=== PATIENT | female | born 1955 | race Caucasian/White ===

== ENCOUNTER 2017-11-30 22:10 | Inpatient (IN) | payer MEDICARE, MEDICAID ==
[2017-11-30] MEDS ORDERED: IPRATRPIUM/ALBUTEROL 0.5/2.5MG 3 ML NEBU. NEB (23:00)
[2017-11-30] MEDS ORDERED: ALBUTEROL SULFATE 2.5 MG/3 ML NEBU. NEB (23:00)
[2017-11-30] MEDS ORDERED: POLYVINYL ALCOHOL 1.4% OPHTH SOLUTION 15ML BOTTLE. OU (23:15)
[2017-11-30 23:30] LABS: ADD MAN DIFF? NO
[2017-11-30] MEDS: POTASSIUM CHLORIDE 40 MEQ in IV NORMAL SALINE 1000ML BAG 1,000 ML IV (23:38)
[2017-11-30 23:40] LABS: BASO # 0.1 x10^3/uL (0.0-0.2); BASO % 1 % (0-3); EOS # 0.3 x10^3/uL (0.0-0.7); EOS % 2 % (0-3); HEMATOCRIT 31.6 % (36.0-47.0); HEMOGLOBIN 9.7 g/dL (12.0-15.5); LYMPH # 4.2 x10^3/uL (1.0-4.8); LYMPH % 28 % (24-48); MEAN CORPUSCULAR HEMOGLOBIN 24 pg (25-35); MEAN CORPUSCULAR HGB CONC 31 g/dL (31-37); MEAN CORPUSCULAR VOLUME 77 fL (79-100); MONO # 1.3 x10^3/uL (0.0-1.1); MONO % 9 % (0-9); NEUT # 9.4 x10^3uL (1.8-7.7); NEUT % 62 % (31-73); PLATELET COUNT 511 x10^3/uL (140-400); RED CELL DISTRIBUTION WIDTH 17.9 % (11.5-14.5); WHITE BLOOD COUNT 15.3 x10^3/uL (4.0-11.0)
[2017-11-30] MEDS: MORPHINE SULFATE 4 MG/ML DISP.SYRIN. IV (23:40)
[2017-11-30 23:59] LABS: ALBUMIN 2.1 g/dL (3.4-5.0); ALBUMIN/GLOBULIN RATIO 0.4 (1.0-1.7); ALK PHOS 105 U/L (46-116); ALT (SGPT) 9 U/L (14-59); ANION GAP 15 (6-14); AST (SGOT) 16 U/L (15-37); BLOOD UREA NITROGEN 6 mg/dL (7-20); BUN/CREATININE RATIO 10 (6-20); CALCIUM 8.4 mg/dL (8.5-10.1); CARBON DIOXIDE 24 mmol/L (21-32); CHLORIDE 102 mmol/L (98-107); CREATININE 0.6 mg/dL (0.6-1.0); GFR 100.6; GLUCOSE 96 mg/dL (70-99); POTASSIUM 3.1 mmol/L (3.5-5.1); SODIUM 141 mmol/L (136-145); TOTAL BILIRUBIN 0.2 mg/dL (0.2-1.0); TOTAL PROTEIN 7.1 g/dL (6.4-8.2)
[2017-12-01] MEDS: MORPHINE SULFATE 4 MG/ML DISP.SYRIN. IV ×5 (02:38→19:59)
[2017-12-01] MEDS: PIPERACILLIN/TAZOBACTAM 3.375 GM in IV NORMAL SALINE 50ML 50 ML IV ×3 (06:07→21:33)
[2017-12-01] MEDS: NYSTATIN TOPICAL POWDER 15GM BOTTLE. TP ×2 (08:44→21:00)
[2017-12-01] MEDS: AMMONIUM LACTATE 12% TOPICAL LOTION 226GM BOTTLE. TP ×2 (08:44→21:00)
[2017-12-01 08:53] LABS: ADD MAN DIFF? NO
[2017-12-01 09:07] LABS: BASO # 0.1 x10^3/uL (0.0-0.2); BASO % 1 % (0-3); EOS # 0.2 x10^3/uL (0.0-0.7); EOS % 1 % (0-3); HEMATOCRIT 30.5 % (36.0-47.0); HEMOGLOBIN 9.3 g/dL (12.0-15.5); LYMPH # 2.9 x10^3/uL (1.0-4.8); LYMPH % 25 % (24-48); MEAN CORPUSCULAR HEMOGLOBIN 24 pg (25-35); MEAN CORPUSCULAR HGB CONC 31 g/dL (31-37); MEAN CORPUSCULAR VOLUME 78 fL (79-100); MONO # 1.3 x10^3/uL (0.0-1.1); MONO % 11 % (0-9); NEUT # 7.1 x10^3uL (1.8-7.7); NEUT % 62 % (31-73); PLATELET COUNT 450 x10^3/uL (140-400); RED BLOOD COUNT 3.91 x10^6/uL (3.50-5.40); RED CELL DISTRIBUTION WIDTH 18.2 % (11.5-14.5); WHITE BLOOD COUNT 11.6 x10^3/uL (4.0-11.0)
[2017-12-01 09:21] LABS: ALBUMIN 2.1 g/dL (3.4-5.0); ALBUMIN/GLOBULIN RATIO 0.5 (1.0-1.7); ALK PHOS 104 U/L (46-116); ALT (SGPT) 10 U/L (14-59); ANION GAP 13 (6-14); AST (SGOT) 9 U/L (15-37); BLOOD UREA NITROGEN 6 mg/dL (7-20); BUN/CREATININE RATIO 10 (6-20); CALCIUM 8.4 mg/dL (8.5-10.1); CARBON DIOXIDE 24 mmol/L (21-32); CHLORIDE 105 mmol/L (98-107); CREATININE 0.6 mg/dL (0.6-1.0); GFR 100.6; GLUCOSE 108 mg/dL (70-99); POTASSIUM 3.8 mmol/L (3.5-5.1); SODIUM 142 mmol/L (136-145); TOTAL BILIRUBIN 0.2 mg/dL (0.2-1.0); TOTAL PROTEIN 6.3 g/dL (6.4-8.2)
[2017-12-01] MEDS: IV NORMAL SALINE 1000ML BAG 1,000 ML IV (09:42)
[2017-12-01 12:12] LABS: LACTIC ACID 0.8 mmol/L (0.4-2.0)
[2017-12-01] MEDS: LACTOBACILLUS RHAMNOSUS GG 1 CAPSULE. PO ×2 (13:00→21:00)
[2017-12-01] MEDS: POTASSIUM CL 40MEQ IN 0.9%NACL 1,000 ML IV (13:13)
[2017-12-02] MEDS: MORPHINE SULFATE 4 MG/ML DISP.SYRIN. IV ×8 (01:44→23:28)
[2017-12-02] MEDS: POTASSIUM CL 40MEQ IN 0.9%NACL 1,000 ML IV ×2 (03:08→17:57)
[2017-12-02] MEDS: ONDANSETRON PF 4 MG/2 ML VIAL. IV ×2 (04:04→09:56)
[2017-12-02 05:58] LABS: ALBUMIN 2.1 g/dL (3.4-5.0); ALBUMIN/GLOBULIN RATIO 0.5 (1.0-1.7); ALK PHOS 100 U/L (46-116); ALT (SGPT) 13 U/L (14-59); ANION GAP 13 (6-14); AST (SGOT) 16 U/L (15-37); BLOOD UREA NITROGEN 6 mg/dL (7-20); BUN/CREATININE RATIO 10 (6-20); CALCIUM 8.4 mg/dL (8.5-10.1); CARBON DIOXIDE 22 mmol/L (21-32); CHLORIDE 107 mmol/L (98-107); CREATININE 0.6 mg/dL (0.6-1.0); GFR 100.6; GLUCOSE 107 mg/dL (70-99); POTASSIUM 4.1 mmol/L (3.5-5.1); SODIUM 142 mmol/L (136-145); TOTAL BILIRUBIN 0.3 mg/dL (0.2-1.0); TOTAL PROTEIN 6.2 g/dL (6.4-8.2)
[2017-12-02] MEDS: PIPERACILLIN/TAZOBACTAM 3.375 GM in IV NORMAL SALINE 50ML 50 ML IV ×3 (06:11→21:07)
[2017-12-02] MEDS: LACTOBACILLUS RHAMNOSUS GG 1 CAPSULE. PO ×2 (09:00→19:36)
[2017-12-02] MEDS: AMMONIUM LACTATE 12% TOPICAL LOTION 226GM BOTTLE. TP ×2 (13:26→19:36)
[2017-12-02] MEDS: NYSTATIN TOPICAL POWDER 15GM BOTTLE. TP ×2 (16:34→19:37)
[2017-12-02 22:08] LABS: MRSA BY PCR Negative (Negative)
[2017-12-03] MEDS: MORPHINE SULFATE 4 MG/ML DISP.SYRIN. IV ×4 (03:26→23:55)
[2017-12-03] MEDS: POTASSIUM CL 40MEQ IN 0.9%NACL 1,000 ML IV ×2 (03:26→15:20)
[2017-12-03] MEDS: PIPERACILLIN/TAZOBACTAM 3.375 GM in IV NORMAL SALINE 50ML 50 ML IV ×4 (05:39→23:56)
[2017-12-03] MEDS: AMMONIUM LACTATE 12% TOPICAL LOTION 226GM BOTTLE. TP ×2 (09:00→21:00)
[2017-12-03] MEDS: LACTOBACILLUS RHAMNOSUS GG 1 CAPSULE. PO ×2 (09:00→23:10)
[2017-12-03] MEDS: NYSTATIN TOPICAL POWDER 15GM BOTTLE. TP ×2 (09:00→23:12)
[2017-12-03 09:20] LABS: ADD MAN DIFF? NO
[2017-12-03 09:22] LABS: BASO # 0.1 x10^3/uL (0.0-0.2); BASO % 1 % (0-3); EOS # 0.2 x10^3/uL (0.0-0.7); EOS % 1 % (0-3); HEMATOCRIT 30.5 % (36.0-47.0); HEMOGLOBIN 9.3 g/dL (12.0-15.5); LYMPH # 1.9 x10^3/uL (1.0-4.8); LYMPH % 16 % (24-48); MEAN CORPUSCULAR HEMOGLOBIN 24 pg (25-35); MEAN CORPUSCULAR HGB CONC 31 g/dL (31-37); MEAN CORPUSCULAR VOLUME 78 fL (79-100); MONO % 8 % (0-9); NEUT # 9.1 x10^3uL (1.8-7.7); NEUT % 74 % (31-73); PLATELET COUNT 438 x10^3/uL (140-400); RED BLOOD COUNT 3.93 x10^6/uL (3.50-5.40); RED CELL DISTRIBUTION WIDTH 18.7 % (11.5-14.5); WHITE BLOOD COUNT 12.3 x10^3/uL (4.0-11.0)
[2017-12-03 10:02] LABS: ALBUMIN 2.1 g/dL (3.4-5.0); ALBUMIN/GLOBULIN RATIO 0.5 (1.0-1.7); ALK PHOS 99 U/L (46-116); ALT (SGPT) 11 U/L (14-59); ANION GAP 10 (6-14); AST (SGOT) 11 U/L (15-37); BLOOD UREA NITROGEN 5 mg/dL (7-20); BUN/CREATININE RATIO 8 (6-20); CALCIUM 8.4 mg/dL (8.5-10.1); CARBON DIOXIDE 26 mmol/L (21-32); CHLORIDE 108 mmol/L (98-107); CREATININE 0.6 mg/dL (0.6-1.0); GFR 100.6; GLUCOSE 102 mg/dL (70-99); SODIUM 144 mmol/L (136-145); TOTAL BILIRUBIN 0.3 mg/dL (0.2-1.0); TOTAL PROTEIN 6.1 g/dL (6.4-8.2)
[2017-12-03] MEDS: IOHEXOL 350 MG/ML 100 ML VIAL. PO (10:15)
[2017-12-03] MEDS ORDERED: CONTRAST GIVEN MC ×2 (10:15→10:45)
[2017-12-03] MEDS: IOHEXOL 300 MG/ML 100ML VIAL. PO (11:15)
[2017-12-03] MEDS: VANCOMYCIN 2 GM in IV DEXTROSE 5 %-0.45 % NACL 500 ML IV (17:00)
[2017-12-03] MEDS: IV NORMAL SALINE 1000ML BAG 1,000 ML IV (17:00)
[2017-12-03 18:08] LABS: LACTIC ACID 0.8 mmol/L (0.4-2.0)
[2017-12-03] MEDS: VANCOMYCIN PER PHARMACY MC (18:42)
[2017-12-03 20:18] LABS: BILIRUBIN,URINE NEGATIVE (NEG); CLARITY,URINE CLEAR; COLOR,URINE YELLOW; GLUCOSE,URINE NEGATIVE (NEG); NITRITE,URINE NEGATIVE (NEG); PH,URINE 6.5; PROTEIN,URINE NEGATIVE (NEG-TRACE); UROBILINOGEN,URINE 0.2 mg/dL (0.2 mg/dL)
[2017-12-03 20:25] LABS: RBC,URINE OCC /HPF (0-2)
[2017-12-03 20:26] LABS: AMORPHOUS SEDIMENT,UR PRESENT /HPF; BACTERIA,URINE 0 /HPF (0-FEW); SQUAMOUS EPITHELIAL CELL,UR MOD /LPF
[2017-12-04] MEDS: POTASSIUM CL 40MEQ IN 0.9%NACL 1,000 ML IV ×2 (04:40→11:41)
[2017-12-04] MEDS: PIPERACILLIN/TAZOBACTAM 3.375 GM in IV NORMAL SALINE 50ML 50 ML IV ×3 (05:58→17:56)
[2017-12-04] MEDS: MORPHINE SULFATE 4 MG/ML DISP.SYRIN. IV ×4 (06:33→19:38)
[2017-12-04 06:43] LABS: ALBUMIN/GLOBULIN RATIO 0.5 (1.0-1.7); ALK PHOS 104 U/L (46-116); ALT (SGPT) 13 U/L (14-59); ANION GAP 11 (6-14); AST (SGOT) 21 U/L (15-37); BLOOD UREA NITROGEN 3 mg/dL (7-20); BUN/CREATININE RATIO 4 (6-20); CALCIUM 8.4 mg/dL (8.5-10.1); CARBON DIOXIDE 25 mmol/L (21-32); CHLORIDE 105 mmol/L (98-107); CREATININE 0.7 mg/dL (0.6-1.0); GFR 84.2; GLUCOSE 95 mg/dL (70-99); POTASSIUM 3.5 mmol/L (3.5-5.1); SODIUM 141 mmol/L (136-145); TOTAL BILIRUBIN 0.4 mg/dL (0.2-1.0); TOTAL PROTEIN 6.4 g/dL (6.4-8.2)
[2017-12-04 07:30] LABS: HEMATOCRIT 30.8 % (36.0-47.0); HEMOGLOBIN 9.5 g/dL (12.0-15.5); MEAN CORPUSCULAR HEMOGLOBIN 24 pg (25-35); MEAN CORPUSCULAR HGB CONC 31 g/dL (31-37); MEAN CORPUSCULAR VOLUME 76 fL (79-100); PLATELET COUNT 429 x10^3/uL (140-400); RED BLOOD COUNT 4.04 x10^6/uL (3.50-5.40); RED CELL DISTRIBUTION WIDTH 18.2 % (11.5-14.5); WHITE BLOOD COUNT 15.2 x10^3/uL (4.0-11.0)
[2017-12-04] MEDS: LACTOBACILLUS RHAMNOSUS GG 1 CAPSULE. PO ×2 (08:11→19:38)
[2017-12-04] MEDS: ONDANSETRON PF 4 MG/2 ML VIAL. IV ×2 (08:11→16:32)
[2017-12-04] MEDS: VANCOMYCIN 2 GM in IV DEXTROSE 5 %-0.45 % NACL 500 ML IV ×2 (08:12→19:39)
[2017-12-04] MEDS: AMMONIUM LACTATE 12% TOPICAL LOTION 226GM BOTTLE. TP ×2 (08:23→19:40)
[2017-12-04] MEDS: NYSTATIN TOPICAL POWDER 15GM BOTTLE. TP ×2 (08:23→19:40)
[2017-12-04] MEDS: VANCOMYCIN PER PHARMACY MC (13:01)
[2017-12-05] MEDS: PIPERACILLIN/TAZOBACTAM 3.375 GM in IV NORMAL SALINE 50ML 50 ML IV ×5 (00:59→19:08)
[2017-12-05] MEDS: MORPHINE SULFATE 4 MG/ML DISP.SYRIN. IV ×5 (01:57→17:53)
[2017-12-05] MEDS: POTASSIUM CL 40MEQ IN 0.9%NACL 1,000 ML IV (06:25)
[2017-12-05 07:52] LABS: ADD MAN DIFF? NO
[2017-12-05 08:09] LABS: ANION GAP 11 (6-14); BLOOD UREA NITROGEN 4 mg/dL (7-20); CALCIUM 8.3 mg/dL (8.5-10.1); CARBON DIOXIDE 25 mmol/L (21-32); CHLORIDE 104 mmol/L (98-107); CREATININE 1.3 mg/dL (0.6-1.0); GFR 41.2; GLUCOSE 97 mg/dL (70-99); POTASSIUM 3.3 mmol/L (3.5-5.1); SODIUM 140 mmol/L (136-145)
[2017-12-05 08:22] LABS: BASO # 0.1 x10^3/uL (0.0-0.2); BASO % 1 % (0-3); EOS # 0.5 x10^3/uL (0.0-0.7); EOS % 3 % (0-3); HEMATOCRIT 29.9 % (36.0-47.0); HEMOGLOBIN 9.2 g/dL (12.0-15.5); LYMPH # 2.2 x10^3/uL (1.0-4.8); LYMPH % 13 % (24-48); MEAN CORPUSCULAR HEMOGLOBIN 24 pg (25-35); MEAN CORPUSCULAR HGB CONC 31 g/dL (31-37); MEAN CORPUSCULAR VOLUME 77 fL (79-100); MONO # 1.5 x10^3/uL (0.0-1.1); MONO % 9 % (0-9); NEUT % 73 % (31-73); PLATELET COUNT 349 x10^3/uL (140-400); RED BLOOD COUNT 3.89 x10^6/uL (3.50-5.40); RED CELL DISTRIBUTION WIDTH 18.1 % (11.5-14.5); VANC TR 30.5 mcg/mL (10.0-20.0); WHITE BLOOD COUNT 16.4 x10^3/uL (4.0-11.0)
[2017-12-05] MEDS: LACTOBACILLUS RHAMNOSUS GG 1 CAPSULE. PO ×2 (09:49→21:46)
[2017-12-05] MEDS: NYSTATIN TOPICAL POWDER 15GM BOTTLE. TP ×2 (09:51→21:46)
[2017-12-05] MEDS: ONDANSETRON PF 4 MG/2 ML VIAL. IV (09:51)
[2017-12-05] MEDS: AMMONIUM LACTATE 12% TOPICAL LOTION 226GM BOTTLE. TP ×2 (09:51→21:45)
[2017-12-05] MEDS: POTASSIUM CHLORIDE 20 MEQ TABLET.ER. PO ×3 (09:51→17:53)
[2017-12-05] MEDS: IOHEXOL 240 MG/ML 50ML VIAL. PO (10:15)
[2017-12-05] MEDS ORDERED: CONTRAST GIVEN MC (10:15)
[2017-12-05] MEDS: LINEZOLID 600 MG TABLET PO (21:46)
[2017-12-06] MEDS: PIPERACILLIN/TAZOBACTAM 3.375 GM in IV NORMAL SALINE 50ML 50 ML IV ×4 (00:12→18:38)
[2017-12-06] MEDS: POTASSIUM CL 40MEQ IN 0.9%NACL 1,000 ML IV ×2 (00:13→10:00)
[2017-12-06] MEDS: MORPHINE SULFATE 4 MG/ML DISP.SYRIN. IV ×2 (04:23→20:57)
[2017-12-06] MEDS: POTASSIUM CHLORIDE 20 MEQ TABLET.ER. PO ×3 (08:00→16:25)
[2017-12-06] MEDS: LINEZOLID 600 MG TABLET PO ×2 (09:00→20:54)
[2017-12-06] MEDS: LACTOBACILLUS RHAMNOSUS GG 1 CAPSULE. PO ×2 (09:00→20:54)
[2017-12-06] MEDS: ONDANSETRON PF 4 MG/2 ML VIAL. IV (09:09)
[2017-12-06 10:09] LABS: HEMATOCRIT 29.5 % (36.0-47.0); HEMOGLOBIN 9.2 g/dL (12.0-15.5); MEAN CORPUSCULAR HEMOGLOBIN 24 pg (25-35); MEAN CORPUSCULAR HGB CONC 31 g/dL (31-37); MEAN CORPUSCULAR VOLUME 77 fL (79-100); PLATELET COUNT 412 x10^3/uL (140-400); RED BLOOD COUNT 3.85 x10^6/uL (3.50-5.40); RED CELL DISTRIBUTION WIDTH 18.5 % (11.5-14.5); WHITE BLOOD COUNT 14.8 x10^3/uL (4.0-11.0)
[2017-12-06] MEDS ORDERED: ONDANSETRON PF 4 MG/2 ML VIAL. IV (10:30)
[2017-12-06] MEDS: IV DEXTROSE 5 %-0.45 % NACL 1,000 ML IV (10:45)
[2017-12-06] MEDS: IV RINGERS,LACTATED 1000ML 1,000 ML IV (11:00)
[2017-12-06] MEDS ORDERED: PROCHLORPERAZINE 10 MG/2 ML VIAL. IV (11:00)
[2017-12-06] MEDS ORDERED: MORPHINE SULFATE 4 MG/ML DISP.SYRIN. IV (11:00)
[2017-12-06] MEDS ORDERED: fentaNYL PF VIAL 100 MCG/2 ML VIAL IV ×2 (11:00)
[2017-12-06] MEDS ORDERED: LIDOCAINE 1% PF 2 ML VIAL. ID (11:00)
[2017-12-06 11:16] LABS: ALBUMIN 1.8 g/dL (3.4-5.0); ALBUMIN/GLOBULIN RATIO 0.4 (1.0-1.7); ALK PHOS 97 U/L (46-116); ALT (SGPT) 6 U/L (14-59); ANION GAP 8 (6-14); AST (SGOT) 15 U/L (15-37); BLOOD UREA NITROGEN 4 mg/dL (7-20); BUN/CREATININE RATIO 3 (6-20); CALCIUM 8.1 mg/dL (8.5-10.1); CARBON DIOXIDE 23 mmol/L (21-32); CHLORIDE 111 mmol/L (98-107); CREATININE 1.6 mg/dL (0.6-1.0); GFR 32.5; GLUCOSE 96 mg/dL (70-99); SODIUM 142 mmol/L (136-145); TOTAL BILIRUBIN 0.4 mg/dL (0.2-1.0)
[2017-12-06 11:21] LABS: POTASSIUM 6.3 mmol/L (3.5-5.1)
[2017-12-06] MEDS: NYSTATIN TOPICAL POWDER 15GM BOTTLE. TP ×2 (13:21→21:11)
[2017-12-06] MEDS: AMMONIUM LACTATE 12% TOPICAL LOTION 226GM BOTTLE. TP ×2 (13:21→21:11)
[2017-12-06] MEDS: LACTULOSE 20 GM/30 ML SOLUTION. PO (13:22)
[2017-12-06] MEDS: SODIUM POLYSTYRENE SULFONATE 15 GM/60 ML ORAL.SUSP. PO (13:23)
[2017-12-06] MEDS: SODIUM BICARB ADULT 8.4% 50 MEQ/50 ML DISP.SYRIN. IV (13:25)
[2017-12-06] MEDS: CALCIUM GLUCONATE 1,000 MG/10 ML VIAL. IVP (13:25)
[2017-12-06] MEDS: DEXTROSE 50% 25 GM / 50ML DISP.SYRIN. IV ×2 (13:26→16:41)
[2017-12-06] MEDS: INSULIN REGULAR 100 UNIT/ML 10ML VIAL. IV (13:27)
[2017-12-06 13:59] LABS: ANION GAP 11 (6-14); CARBON DIOXIDE 24 mmol/L (21-32); CHLORIDE 107 mmol/L (98-107); POTASSIUM 4.2 mmol/L (3.5-5.1); SODIUM 142 mmol/L (136-145)
[2017-12-06 15:16] LABS: POC GLUCOSE 76 mg/dL (70-99)
[2017-12-06 16:24] LABS: POC GLUCOSE 53 mg/dL (70-99)
[2017-12-06 17:33] LABS: POC GLUCOSE 101 mg/dL (70-99)
[2017-12-06 19:19] LABS: ANION GAP 14 (6-14); BLOOD UREA NITROGEN 4 mg/dL (7-20); CALCIUM 8.7 mg/dL (8.5-10.1); CARBON DIOXIDE 25 mmol/L (21-32); CHLORIDE 110 mmol/L (98-107); CREATININE 1.9 mg/dL (0.6-1.0); GFR 26.6; GLUCOSE 159 mg/dL (70-99); POTASSIUM 3.2 mmol/L (3.5-5.1); SODIUM 149 mmol/L (136-145)
[2017-12-06 19:49] LABS: POC GLUCOSE 107 mg/dL (70-99)
[2017-12-06 20:30] LABS: POC GLUCOSE 149 mg/dL (70-99)
[2017-12-07] MEDS: PIPERACILLIN/TAZOBACTAM 3.375 GM in IV NORMAL SALINE 50ML 50 ML IV ×4 (00:53→17:42)
[2017-12-07] MEDS: IV DEXTROSE 5 %-0.45 % NACL 1,000 ML IV (00:56)
[2017-12-07] MEDS ORDERED: silver sulfADIAZINE 1% CREAM 25GM TUBE. TP (06:03)
[2017-12-07] MEDS ORDERED: LIDOCAINE 1% PF 30 ML VIAL. (06:04)
[2017-12-07 06:51] LABS: ANION GAP 11 (6-14); BLOOD UREA NITROGEN 3 mg/dL (7-20); CALCIUM 8.7 mg/dL (8.5-10.1); CARBON DIOXIDE 26 mmol/L (21-32); CHLORIDE 111 mmol/L (98-107); CREATININE 1.9 mg/dL (0.6-1.0); GFR 26.6; GLUCOSE 143 mg/dL (70-99); POTASSIUM 3.3 mmol/L (3.5-5.1); SODIUM 148 mmol/L (136-145)
[2017-12-07] MEDS ORDERED: ONDANSETRON PF 4 MG/2 ML VIAL. IV (07:00)
[2017-12-07] MEDS ORDERED: MORPHINE SULFATE 4 MG/ML DISP.SYRIN. IV (07:00)
[2017-12-07] MEDS ORDERED: LIDOCAINE 1% PF 2 ML VIAL. ID (07:00)
[2017-12-07] MEDS ORDERED: PROCHLORPERAZINE 10 MG/2 ML VIAL. IV (07:00)
[2017-12-07] MEDS ORDERED: LIDOCAINE 1% PF 5 ML VIAL. (07:20)
[2017-12-07] MEDS ORDERED: PROPOFOL 20 ML IV (07:20)
[2017-12-07] MEDS ORDERED: ONDANSETRON PF 4 MG/2 ML VIAL. (07:20)
[2017-12-07] MEDS ORDERED: DEXAMETHASONE SOD PHOS 20 MG/5 ML VIAL. (07:20)
[2017-12-07] MEDS ORDERED: PHENYLEPHRINE in 0.9% NACL PF 1 MG/10 ML SYRINGE. IV (07:34)
[2017-12-07] MEDS ORDERED: SEVOFLURANE 31 TO 60 MINUTES. IH (08:03)
[2017-12-07] MEDS ORDERED: fentaNYL PF VIAL 100 MCG/2 ML VIAL ×2 (08:41→09:18)
[2017-12-07] MEDS: fentaNYL PF VIAL 100 MCG/2 ML VIAL IV ×4 (08:50→09:20)
[2017-12-07] MEDS: IV RINGERS,LACTATED 1000ML 1,000 ML IV (09:22)
[2017-12-07] MEDS: POTASSIUM CL 20MEQ IN D5W 1,000 ML IV (11:44)
[2017-12-07] MEDS: LINEZOLID 600 MG TABLET PO ×2 (12:00→21:21)
[2017-12-07] MEDS: NYSTATIN TOPICAL POWDER 15GM BOTTLE. TP ×2 (12:00→21:21)
[2017-12-07] MEDS: LACTOBACILLUS RHAMNOSUS GG 1 CAPSULE. PO ×2 (12:00→21:21)
[2017-12-07] MEDS: AMMONIUM LACTATE 12% TOPICAL LOTION 226GM BOTTLE. TP ×2 (12:01→21:21)
[2017-12-07] MEDS: MORPHINE SULFATE 4 MG/ML DISP.SYRIN. IV ×3 (12:09→21:22)
[2017-12-07] MEDS: AMINO AC 3%/ELECTROLYTE/GLYCER 1,000 ML IV (13:20)
[2017-12-07 18:03] LABS: ANION GAP 10 (6-14); BLOOD UREA NITROGEN 4 mg/dL (7-20); CALCIUM 8.1 mg/dL (8.5-10.1); CARBON DIOXIDE 26 mmol/L (21-32); CHLORIDE 108 mmol/L (98-107); CREATININE 1.8 mg/dL (0.6-1.0); GFR 28.3; GLUCOSE 165 mg/dL (70-99); POTASSIUM 3.8 mmol/L (3.5-5.1); SODIUM 144 mmol/L (136-145)
[2017-12-07 18:12] LABS: LACTIC ACID 1.2 mmol/L (0.4-2.0)
[2017-12-08] MEDS: MORPHINE SULFATE 4 MG/ML DISP.SYRIN. IV ×4 (00:24→22:54)
[2017-12-08] MEDS: PIPERACILLIN/TAZOBACTAM 3.375 GM in IV NORMAL SALINE 50ML 50 ML IV ×4 (00:25→18:08)
[2017-12-08] MEDS: AMINO AC 3%/ELECTROLYTE/GLYCER 1,000 ML IV ×2 (01:33→12:50)
[2017-12-08] MEDS: POTASSIUM CL 20MEQ IN D5W 1,000 ML IV ×2 (04:04→22:53)
[2017-12-08 06:43] LABS: HEMATOCRIT 28.7 % (36.0-47.0); HEMOGLOBIN 8.9 g/dL (12.0-15.5); MEAN CORPUSCULAR HEMOGLOBIN 24 pg (25-35); MEAN CORPUSCULAR HGB CONC 31 g/dL (31-37); MEAN CORPUSCULAR VOLUME 77 fL (79-100); PLATELET COUNT 424 x10^3/uL (140-400); RED BLOOD COUNT 3.75 x10^6/uL (3.50-5.40); RED CELL DISTRIBUTION WIDTH 18.4 % (11.5-14.5); WHITE BLOOD COUNT 15.7 x10^3/uL (4.0-11.0)
[2017-12-08 06:57] LABS: ALBUMIN 1.9 g/dL (3.4-5.0); ALBUMIN/GLOBULIN RATIO 0.4 (1.0-1.7); ALK PHOS 96 U/L (46-116); ALT (SGPT) 11 U/L (14-59); ANION GAP 9 (6-14); AST (SGOT) 12 U/L (15-37); BLOOD UREA NITROGEN 7 mg/dL (7-20); BUN/CREATININE RATIO 4 (6-20); CALCIUM 8.5 mg/dL (8.5-10.1); CARBON DIOXIDE 27 mmol/L (21-32); CHLORIDE 102 mmol/L (98-107); CREATININE 1.7 mg/dL (0.6-1.0); GFR 30.3; GLUCOSE 132 mg/dL (70-99); POTASSIUM 3.4 mmol/L (3.5-5.1); SODIUM 138 mmol/L (136-145); TOTAL BILIRUBIN 0.3 mg/dL (0.2-1.0); TOTAL PROTEIN 6.9 g/dL (6.4-8.2)
[2017-12-08] MEDS: ONDANSETRON PF 4 MG/2 ML VIAL. IV (10:32)
[2017-12-08] MEDS: LINEZOLID 600 MG TABLET PO ×2 (10:33→22:54)
[2017-12-08] MEDS: LACTOBACILLUS RHAMNOSUS GG 1 CAPSULE. PO ×2 (10:33→22:54)
[2017-12-08] MEDS: NYSTATIN TOPICAL POWDER 15GM BOTTLE. TP ×2 (10:34→22:56)
[2017-12-08] MEDS: HYDROCORTISONE 1% TOPICAL OINTMENT 30GM TUBE. TP ×2 (10:34→22:56)
[2017-12-08] MEDS: AMMONIUM LACTATE 12% TOPICAL LOTION 226GM BOTTLE. TP ×2 (10:36→22:56)
[2017-12-08] MEDS: METHYL SALICYLATE/MENTHOL TOPICAL OINTMENT 29GM TUBE. TP (22:55)
[2017-12-09] MEDS: PIPERACILLIN/TAZOBACTAM 3.375 GM in IV NORMAL SALINE 50ML 50 ML IV ×5 (00:17→23:08)
[2017-12-09] MEDS: MORPHINE SULFATE 4 MG/ML DISP.SYRIN. IV ×5 (01:24→20:06)
[2017-12-09] MEDS: AMINO AC 3%/ELECTROLYTE/GLYCER 1,000 ML IV ×2 (01:25→17:02)
[2017-12-09 08:09] LABS: ADD MAN DIFF? NO
[2017-12-09 08:40] LABS: BASO # 0.2 x10^3/uL (0.0-0.2); BASO % 1 % (0-3); EOS # 0.2 x10^3/uL (0.0-0.7); EOS % 1 % (0-3); HEMATOCRIT 30.5 % (36.0-47.0); HEMOGLOBIN 9.3 g/dL (12.0-15.5); LYMPH # 2.1 x10^3/uL (1.0-4.8); LYMPH % 16 % (24-48); MEAN CORPUSCULAR HEMOGLOBIN 24 pg (25-35); MEAN CORPUSCULAR HGB CONC 31 g/dL (31-37); MEAN CORPUSCULAR VOLUME 78 fL (79-100); MONO # 1.1 x10^3/uL (0.0-1.1); MONO % 8 % (0-9); NEUT # 10.1 x10^3uL (1.8-7.7); NEUT % 74 % (31-73); PLATELET COUNT 376 x10^3/uL (140-400); RED CELL DISTRIBUTION WIDTH 18.8 % (11.5-14.5); WHITE BLOOD COUNT 13.7 x10^3/uL (4.0-11.0)
[2017-12-09 08:43] LABS: ANION GAP 11 (6-14); BLOOD UREA NITROGEN 9 mg/dL (7-20); CALCIUM 8.5 mg/dL (8.5-10.1); CARBON DIOXIDE 25 mmol/L (21-32); CHLORIDE 106 mmol/L (98-107); CREATININE 1.8 mg/dL (0.6-1.0); GFR 28.3; GLUCOSE 110 mg/dL (70-99); POTASSIUM 3.9 mmol/L (3.5-5.1); SODIUM 142 mmol/L (136-145)
[2017-12-09] MEDS: LACTOBACILLUS RHAMNOSUS GG 1 CAPSULE. PO ×2 (09:09→20:06)
[2017-12-09] MEDS: LINEZOLID 600 MG TABLET PO ×2 (09:09→20:06)
[2017-12-09] MEDS: ONDANSETRON PF 4 MG/2 ML VIAL. IV (09:09)
[2017-12-09] MEDS: NYSTATIN TOPICAL POWDER 15GM BOTTLE. TP ×2 (09:11→20:05)
[2017-12-09] MEDS: ALTEPLASE 2 MG VIAL INT CAT (09:12)
[2017-12-09] MEDS: AMMONIUM LACTATE 12% TOPICAL LOTION 226GM BOTTLE. TP ×2 (09:12→20:05)
[2017-12-09] MEDS: POTASSIUM CL 20MEQ IN D5W 1,000 ML IV ×2 (19:27→20:06)
[2017-12-10] MEDS: MORPHINE SULFATE 4 MG/ML DISP.SYRIN. IV ×5 (02:25→20:40)
[2017-12-10] MEDS: AMINO AC 3%/ELECTROLYTE/GLYCER 1,000 ML IV ×2 (02:45→11:45)
[2017-12-10] MEDS: PIPERACILLIN/TAZOBACTAM 3.375 GM in IV NORMAL SALINE 50ML 50 ML IV ×4 (05:47→23:52)
[2017-12-10 06:38] LABS: ANION GAP 8 (6-14); BLOOD UREA NITROGEN 12 mg/dL (7-20); CALCIUM 8.8 mg/dL (8.5-10.1); CARBON DIOXIDE 27 mmol/L (21-32); CHLORIDE 104 mmol/L (98-107); CREATININE 1.8 mg/dL (0.6-1.0); GFR 28.3; GLUCOSE 106 mg/dL (70-99); POTASSIUM 4.3 mmol/L (3.5-5.1); SODIUM 139 mmol/L (136-145)
[2017-12-10] MEDS: LINEZOLID 600 MG TABLET PO (08:24)
[2017-12-10] MEDS: LACTOBACILLUS RHAMNOSUS GG 1 CAPSULE. PO ×2 (08:24→20:41)
[2017-12-10] MEDS: AMMONIUM LACTATE 12% TOPICAL LOTION 226GM BOTTLE. TP ×2 (08:26→20:41)
[2017-12-10] MEDS: NYSTATIN TOPICAL POWDER 15GM BOTTLE. TP ×2 (08:27→20:41)
[2017-12-10] MEDS: POTASSIUM CL 20MEQ IN D5W 1,000 ML IV (13:07)
[2017-12-11] MEDS: AMINO AC 3%/ELECTROLYTE/GLYCER 1,000 ML IV ×2 (01:36→12:57)
[2017-12-11] MEDS: MORPHINE SULFATE 4 MG/ML DISP.SYRIN. IV ×4 (02:29→20:53)
[2017-12-11] MEDS: PIPERACILLIN/TAZOBACTAM 3.375 GM in IV NORMAL SALINE 50ML 50 ML IV (05:46)
[2017-12-11 06:17] LABS: ANION GAP 6 (6-14); BLOOD UREA NITROGEN 15 mg/dL (7-20); CALCIUM 9.3 mg/dL (8.5-10.1); CARBON DIOXIDE 29 mmol/L (21-32); CHLORIDE 102 mmol/L (98-107); CREATININE 1.9 mg/dL (0.6-1.0); GFR 26.6; GLUCOSE 125 mg/dL (70-99); POTASSIUM 4.2 mmol/L (3.5-5.1); SODIUM 137 mmol/L (136-145)
[2017-12-11] MEDS: ONDANSETRON PF 4 MG/2 ML VIAL. IV (09:18)
[2017-12-11] MEDS: LACTOBACILLUS RHAMNOSUS GG 1 CAPSULE. PO ×2 (09:18→20:52)
[2017-12-11] MEDS: AMMONIUM LACTATE 12% TOPICAL LOTION 226GM BOTTLE. TP ×2 (09:19→21:00)
[2017-12-11] MEDS: NYSTATIN TOPICAL POWDER 15GM BOTTLE. TP ×2 (09:20→20:52)
[2017-12-11] MEDS: PIPERACILLIN/TAZOBACTAM 2.25 GM in IV NORMAL SALINE 50ML 50 ML IV ×2 (09:26→17:26)
[2017-12-11] MEDS: PANTOPRAZOLE 40 MG TABLET.DR. PO (12:57)
[2017-12-11] MEDS: LIDO:MAALOX 1:1 20 ML SINGLE DOSE. SWSW (12:57)
[2017-12-11] MEDS: HALOPERIDOL LACTATE 5 MG/ML VIAL. IVP ×2 (12:58→20:53)
[2017-12-11] MEDS: POTASSIUM CL 20MEQ IN D5W 1,000 ML IV (14:35)
[2017-12-12] MEDS: MORPHINE SULFATE 4 MG/ML DISP.SYRIN. IV ×6 (00:01→21:28)
[2017-12-12] MEDS: AMINO AC 3%/ELECTROLYTE/GLYCER 1,000 ML IV ×2 (00:46→13:04)
[2017-12-12] MEDS: HALOPERIDOL LACTATE 5 MG/ML VIAL. IVP (04:15)
[2017-12-12] MEDS: PIPERACILLIN/TAZOBACTAM 2.25 GM in IV NORMAL SALINE 50ML 50 ML IV ×4 (05:47→17:40)
[2017-12-12] MEDS: POTASSIUM CL 20MEQ IN D5W 1,000 ML IV (06:03)
[2017-12-12 06:52] LABS: ALBUMIN 1.7 g/dL (3.4-5.0); ALBUMIN/GLOBULIN RATIO 0.3 (1.0-1.7); ALK PHOS 88 U/L (46-116); ALT (SGPT) 9 U/L (14-59); ANION GAP 7 (6-14); AST (SGOT) 12 U/L (15-37); BLOOD UREA NITROGEN 19 mg/dL (7-20); BUN/CREATININE RATIO 10 (6-20); CALCIUM 9.1 mg/dL (8.5-10.1); CARBON DIOXIDE 29 mmol/L (21-32); CHLORIDE 101 mmol/L (98-107); GFR 25.1; GLUCOSE 118 mg/dL (70-99); SODIUM 137 mmol/L (136-145); TOTAL BILIRUBIN 0.2 mg/dL (0.2-1.0); TOTAL PROTEIN 6.7 g/dL (6.4-8.2)
[2017-12-12 06:58] LABS: HEMATOCRIT 25.9 % (36.0-47.0); HEMOGLOBIN 8.4 g/dL (12.0-15.5); MEAN CORPUSCULAR HEMOGLOBIN 25 pg (25-35); MEAN CORPUSCULAR HGB CONC 32 g/dL (31-37); MEAN CORPUSCULAR VOLUME 76 fL (79-100); PLATELET COUNT 336 x10^3/uL (140-400); RED CELL DISTRIBUTION WIDTH 18.5 % (11.5-14.5); WHITE BLOOD COUNT 9.6 x10^3/uL (4.0-11.0)
[2017-12-12] MEDS: LACTOBACILLUS RHAMNOSUS GG 1 CAPSULE. PO ×2 (07:51→21:00)
[2017-12-12] MEDS: PANTOPRAZOLE 40 MG TABLET.DR. PO (07:52)
[2017-12-12] MEDS: METHYL SALICYLATE/MENTHOL TOPICAL OINTMENT 29GM TUBE. TP (07:54)
[2017-12-12] MEDS: NYSTATIN TOPICAL POWDER 15GM BOTTLE. TP ×2 (07:54→21:26)
[2017-12-12] MEDS: AMMONIUM LACTATE 12% TOPICAL LOTION 226GM BOTTLE. TP ×2 (07:55→21:26)
[2017-12-12] MEDS: ONDANSETRON PF 4 MG/2 ML VIAL. IV (17:41)
[2017-12-13] MEDS: PIPERACILLIN/TAZOBACTAM 2.25 GM in IV NORMAL SALINE 50ML 50 ML IV ×4 (00:09→18:11)
[2017-12-13] MEDS: ONDANSETRON PF 4 MG/2 ML VIAL. IV (03:17)
[2017-12-13] MEDS: AMINO AC 3%/ELECTROLYTE/GLYCER 1,000 ML IV ×2 (03:17→16:23)
[2017-12-13] MEDS: MORPHINE SULFATE 4 MG/ML DISP.SYRIN. IV ×4 (03:17→20:24)
[2017-12-13 06:54] LABS: ANION GAP 7 (6-14); BLOOD UREA NITROGEN 23 mg/dL (7-20); CALCIUM 9.8 mg/dL (8.5-10.1); CARBON DIOXIDE 29 mmol/L (21-32); CHLORIDE 100 mmol/L (98-107); CREATININE 2.1 mg/dL (0.6-1.0); GFR 23.7; GLUCOSE 108 mg/dL (70-99); POTASSIUM 4.8 mmol/L (3.5-5.1); SODIUM 136 mmol/L (136-145)
[2017-12-13] MEDS: PANTOPRAZOLE 40 MG TABLET.DR. PO (07:42)
[2017-12-13] MEDS: NYSTATIN TOPICAL POWDER 15GM BOTTLE. TP ×2 (09:03→20:27)
[2017-12-13] MEDS: LACTOBACILLUS RHAMNOSUS GG 1 CAPSULE. PO ×2 (09:03→20:24)
[2017-12-13] MEDS: AMMONIUM LACTATE 12% TOPICAL LOTION 226GM BOTTLE. TP ×2 (09:04→20:27)
[2017-12-13] MEDS ORDERED: ALBUTEROL SULFATE 2.5 MG/3 ML NEBU. NEB (13:15)
[2017-12-13] MEDS: POTASSIUM CL 20MEQ IN D5W 1,000 ML IV (14:15)
[2017-12-14] MEDS: MORPHINE SULFATE 4 MG/ML DISP.SYRIN. IV ×7 (00:09→20:16)
[2017-12-14] MEDS: PIPERACILLIN/TAZOBACTAM 2.25 GM in IV NORMAL SALINE 50ML 50 ML IV ×4 (00:09→17:29)
[2017-12-14] MEDS: AMINO AC 3%/ELECTROLYTE/GLYCER 1,000 ML IV ×2 (06:02→17:28)
[2017-12-14 06:29] LABS: HEMATOCRIT 25.3 % (36.0-47.0); HEMOGLOBIN 8.1 g/dL (12.0-15.5); MEAN CORPUSCULAR HEMOGLOBIN 25 pg (25-35); MEAN CORPUSCULAR HGB CONC 32 g/dL (31-37); MEAN CORPUSCULAR VOLUME 77 fL (79-100); PLATELET COUNT 355 x10^3/uL (140-400); RED CELL DISTRIBUTION WIDTH 17.9 % (11.5-14.5); WHITE BLOOD COUNT 12.5 x10^3/uL (4.0-11.0)
[2017-12-14 06:54] LABS: ALBUMIN/GLOBULIN RATIO 0.4 (1.0-1.7); ALK PHOS 99 U/L (46-116); ALT (SGPT) 12 U/L (14-59); ANION GAP 8 (6-14); AST (SGOT) 16 U/L (15-37); BLOOD UREA NITROGEN 26 mg/dL (7-20); BUN/CREATININE RATIO 12 (6-20); CALCIUM 9.8 mg/dL (8.5-10.1); CARBON DIOXIDE 29 mmol/L (21-32); CHLORIDE 97 mmol/L (98-107); CREATININE 2.1 mg/dL (0.6-1.0); GFR 23.7; GLUCOSE 117 mg/dL (70-99); POTASSIUM 4.5 mmol/L (3.5-5.1); SODIUM 134 mmol/L (136-145); TOTAL BILIRUBIN 0.2 mg/dL (0.2-1.0); TOTAL PROTEIN 7.5 g/dL (6.4-8.2)
[2017-12-14] MEDS: PANTOPRAZOLE 40 MG TABLET.DR. PO (08:07)
[2017-12-14] MEDS: LACTOBACILLUS RHAMNOSUS GG 1 CAPSULE. PO ×2 (08:07→20:15)
[2017-12-14] MEDS: NYSTATIN TOPICAL POWDER 15GM BOTTLE. TP ×2 (09:20→20:16)
[2017-12-14] MEDS: POTASSIUM CL 20MEQ IN D5W 1,000 ML IV ×3 (09:20→09:23)
[2017-12-14] MEDS: AMMONIUM LACTATE 12% TOPICAL LOTION 226GM BOTTLE. TP ×2 (09:20→20:17)
[2017-12-14] MEDS: ALTEPLASE 2 MG VIAL INT CAT (17:54)
[2017-12-14 22:13] LABS: LACTIC ACID 0.6 mmol/L (0.4-2.0)
[2017-12-15] MEDS: PIPERACILLIN/TAZOBACTAM 2.25 GM in IV NORMAL SALINE 50ML 50 ML IV ×5 (00:36→23:47)
[2017-12-15] MEDS: HALOPERIDOL LACTATE 5 MG/ML VIAL. IVP (02:35)
[2017-12-15] MEDS: POTASSIUM CL 20MEQ IN D5W 1,000 ML IV ×2 (02:36→11:39)
[2017-12-15] MEDS: MORPHINE SULFATE 4 MG/ML DISP.SYRIN. IV ×2 (02:59→12:04)
[2017-12-15] MEDS: PANTOPRAZOLE 40 MG TABLET.DR. PO (05:06)
[2017-12-15] MEDS: AMINO AC 3%/ELECTROLYTE/GLYCER 1,000 ML IV ×2 (05:08→17:07)
[2017-12-15 05:27] LABS: ADD MAN DIFF? NO; BASO % 0 % (0-3); EOS # 0.3 x10^3/uL (0.0-0.7); EOS % 3 % (0-3); HEMATOCRIT 28.5 % (36.0-47.0); HEMOGLOBIN 9.4 g/dL (12.0-15.5); LYMPH # 3.1 x10^3/uL (1.0-4.8); LYMPH % 30 % (24-48); MEAN CORPUSCULAR HEMOGLOBIN 25 pg (25-35); MEAN CORPUSCULAR HGB CONC 33 g/dL (31-37); MEAN CORPUSCULAR VOLUME 76 fL (79-100); MONO # 1.4 x10^3/uL (0.0-1.1); MONO % 13 % (0-9); NEUT # 5.5 x10^3uL (1.8-7.7); NEUT % 54 % (31-73); PLATELET COUNT 353 x10^3/uL (140-400); RED BLOOD COUNT 3.74 x10^6/uL (3.50-5.40); RED CELL DISTRIBUTION WIDTH 18.4 % (11.5-14.5); WHITE BLOOD COUNT 10.2 x10^3/uL (4.0-11.0)
[2017-12-15 05:44] LABS: ANION GAP 10 (6-14); BLOOD UREA NITROGEN 27 mg/dL (7-20); CALCIUM 9.2 mg/dL (8.5-10.1); CARBON DIOXIDE 27 mmol/L (21-32); CHLORIDE 99 mmol/L (98-107); GFR 25.1; GLUCOSE 134 mg/dL (70-99); POTASSIUM 4.4 mmol/L (3.5-5.1); SODIUM 136 mmol/L (136-145)
[2017-12-15] MEDS: NYSTATIN TOPICAL POWDER 15GM BOTTLE. TP ×2 (09:00→21:24)
[2017-12-15] MEDS: AMMONIUM LACTATE 12% TOPICAL LOTION 226GM BOTTLE. TP ×2 (09:00→21:24)
[2017-12-15] MEDS: ONDANSETRON PF 4 MG/2 ML VIAL. IV ×2 (09:00→17:01)
[2017-12-15] MEDS: METHYL SALICYLATE/MENTHOL TOPICAL OINTMENT 29GM TUBE. TP (09:01)
[2017-12-15] MEDS: HYDROCORTISONE 1% TOPICAL OINTMENT 30GM TUBE. TP (09:01)
[2017-12-15] MEDS: LACTOBACILLUS RHAMNOSUS GG 1 CAPSULE. PO ×2 (09:01→21:21)
[2017-12-15] MEDS: LIDO:MAALOX 1:1 20 ML SINGLE DOSE. SWSW (12:04)
[2017-12-15] MEDS: ACETAMINOPHEN 325 MG TABLET. PO (14:06)
[2017-12-15] MEDS: HYDROcodone/APAP 5/325MG 1 TAB TABLET PO ×2 (17:01→21:22)
[2017-12-15] MEDS: LORazepam 1 MG TABLET PO ×2 (17:01→23:17)
[2017-12-16] MEDS: MORPHINE SULFATE 4 MG/ML DISP.SYRIN. IV ×3 (00:31→07:07)
[2017-12-16] MEDS: HYDROcodone/APAP 5/325MG 1 TAB TABLET PO ×3 (02:20→22:33)
[2017-12-16] MEDS: AMINO AC 3%/ELECTROLYTE/GLYCER 1,000 ML IV ×2 (05:20→18:25)
[2017-12-16] MEDS: PIPERACILLIN/TAZOBACTAM 2.25 GM in IV NORMAL SALINE 50ML 50 ML IV ×3 (05:51→17:57)
[2017-12-16 06:57] LABS: ANION GAP 12 (6-14); BLOOD UREA NITROGEN 26 mg/dL (7-20); CALCIUM 9.1 mg/dL (8.5-10.1); CARBON DIOXIDE 25 mmol/L (21-32); CHLORIDE 97 mmol/L (98-107); GFR 25.1; GLUCOSE 123 mg/dL (70-99); POTASSIUM 4.1 mmol/L (3.5-5.1); SODIUM 134 mmol/L (136-145)
[2017-12-16] MEDS: PANTOPRAZOLE 40 MG TABLET.DR. PO (07:06)
[2017-12-16] MEDS: LORazepam 1 MG TABLET PO ×2 (07:06→18:31)
[2017-12-16] MEDS: AMMONIUM LACTATE 12% TOPICAL LOTION 226GM BOTTLE. TP ×2 (08:52→22:35)
[2017-12-16] MEDS: LACTOBACILLUS RHAMNOSUS GG 1 CAPSULE. PO ×2 (08:52→22:32)
[2017-12-16] MEDS: NYSTATIN TOPICAL POWDER 15GM BOTTLE. TP ×2 (08:52→22:34)
[2017-12-16] MEDS: POTASSIUM CL 20MEQ IN D5W 1,000 ML IV (09:34)
[2017-12-16] MEDS ORDERED: SODIUM CHLORIDE 0.65% NASAL SPRAY 45ML BOTTLE. NS (10:00)
[2017-12-16] MEDS ORDERED: SIMETHICONE 80 MG TAB.CHEW PO (10:00)
[2017-12-16] MEDS ORDERED: ACETAMINOPHEN 325 MG TABLET. PO (10:00)
[2017-12-16] MEDS ORDERED: MAGNESIUM HYDROXIDE 2,400 MG/30 ML ORAL.SUSP. PO (10:00)
[2017-12-16] MEDS ORDERED: NON FORMULARY ITEM (Albuterol Sulfate (Proventil Hfa Inhaler) 1 PUFF) IH (10:00)
[2017-12-16] MEDS: METOPROLOL SUCC 24HR ER 50 MG TAB.ER.24H. PO (11:12)
[2017-12-16] MEDS: busPIRone 5 MG TABLET. PO ×2 (11:12→22:34)
[2017-12-16] MEDS: DULoxetine HCL 30 MG CAPSULE.DR PO (11:12)
[2017-12-16] MEDS: ROFLUMILAST 500 MCG TABLET. PO (11:12)
[2017-12-16] MEDS: CETIRIZINE HCL 10 MG TABLET. PO (11:12)
[2017-12-16] MEDS: QUEtiapine 25 MG TABLET. PO ×2 (11:12→22:34)
[2017-12-16] MEDS: HYDROcodone/APAP 7.5/325MG 1 TAB TABLET PO ×2 (11:13→18:31)
[2017-12-16] MEDS: FLUTICASONE 50MCG/NASAL SPRAY 16GM BOTTLE. NS (11:14)
[2017-12-16] MEDS: GABAPENTIN 300 MG CAPSULE. PO ×3 (13:25→22:33)
[2017-12-16] MEDS: IPRATRPIUM/ALBUTEROL 0.5/2.5MG 3 ML NEBU. NEB ×3 (13:26→19:45)
[2017-12-16] MEDS: HYDROCORTISONE 1% TOPICAL CREAM 30GM TUBE. TP ×2 (14:00→21:00)
[2017-12-16] MEDS: HYDROCORTISONE 1% TOPICAL OINTMENT 30GM TUBE. TP (14:36)
[2017-12-16] MEDS: tiZANidine 4 MG TABLET. PO ×2 (14:36→22:38)
[2017-12-16] MEDS: OXYBUTYNIN CHLORIDE 5 MG TABLET PO ×2 (14:36→22:33)
[2017-12-16] MEDS: BUDESONIDE 0.5 MG/2 ML NEBU. NEB (19:45)
[2017-12-16] MEDS ORDERED: NON FORMULARY ITEM (Dextran 70/Hypromellose (Artificial Tears Eye Drops) 1 DROP) EACHEYE (21:00)
[2017-12-16] MEDS ORDERED: busPIRone 5 MG TABLET. PO (21:00)
[2017-12-16] MEDS: traZODone 100 MG TABLET. PO (22:33)
[2017-12-16] MEDS: QUEtiapine 100 MG TABLET. PO (22:33)
[2017-12-16] MEDS: ATORVASTATIN CALCIUM 10 MG TABLET. PO (22:34)
[2017-12-17] MEDS: HYDROcodone/APAP 7.5/325MG 1 TAB TABLET PO ×3 (04:30→17:59)
[2017-12-17] MEDS: POTASSIUM CL 20MEQ IN D5W 1,000 ML IV ×2 (04:31→19:23)
[2017-12-17 05:40] LABS: ADD MAN DIFF? NO
[2017-12-17] MEDS: PIPERACILLIN/TAZOBACTAM 2.25 GM in IV NORMAL SALINE 50ML 50 ML IV ×4 (06:00→17:58)
[2017-12-17 06:08] LABS: BASO # 0.1 x10^3/uL (0.0-0.2); BASO % 1 % (0-3); EOS # 0.3 x10^3/uL (0.0-0.7); EOS % 4 % (0-3); HEMATOCRIT 28.4 % (36.0-47.0); HEMOGLOBIN 9.1 g/dL (12.0-15.5); LYMPH % 34 % (24-48); MEAN CORPUSCULAR HEMOGLOBIN 25 pg (25-35); MEAN CORPUSCULAR HGB CONC 32 g/dL (31-37); MEAN CORPUSCULAR VOLUME 77 fL (79-100); MONO # 1.1 x10^3/uL (0.0-1.1); MONO % 12 % (0-9); NEUT # 4.2 x10^3uL (1.8-7.7); NEUT % 49 % (31-73); PLATELET COUNT 342 x10^3/uL (140-400); RED CELL DISTRIBUTION WIDTH 18.2 % (11.5-14.5); WHITE BLOOD COUNT 8.7 x10^3/uL (4.0-11.0)
[2017-12-17 06:13] LABS: ALBUMIN 2.2 g/dL (3.4-5.0); ALBUMIN/GLOBULIN RATIO 0.4 (1.0-1.7); ALK PHOS 130 U/L (46-116); ALT (SGPT) 17 U/L (14-59); ANION GAP 12 (6-14); AST (SGOT) 29 U/L (15-37); BLOOD UREA NITROGEN 26 mg/dL (7-20); BUN/CREATININE RATIO 14 (6-20); CALCIUM 8.9 mg/dL (8.5-10.1); CARBON DIOXIDE 26 mmol/L (21-32); CHLORIDE 96 mmol/L (98-107); CREATININE 1.8 mg/dL (0.6-1.0); GFR 28.3; GLUCOSE 103 mg/dL (70-99); POTASSIUM 4.4 mmol/L (3.5-5.1); SODIUM 134 mmol/L (136-145); TOTAL BILIRUBIN 0.2 mg/dL (0.2-1.0); TOTAL PROTEIN 7.2 g/dL (6.4-8.2)
[2017-12-17] MEDS: IPRATRPIUM/ALBUTEROL 0.5/2.5MG 3 ML NEBU. NEB ×4 (07:20→21:00)
[2017-12-17] MEDS: BUDESONIDE 0.5 MG/2 ML NEBU. NEB ×2 (07:20→20:00)
[2017-12-17] MEDS: PANTOPRAZOLE 40 MG TABLET.DR. PO (08:01)
[2017-12-17] MEDS ORDERED: NON FORMULARY ITEM (Pantoprazole Sodium (Protonix) 1 TAB) PO ×2 (09:00)
[2017-12-17] MEDS: NYSTATIN TOPICAL POWDER 15GM BOTTLE. TP ×2 (09:16→21:06)
[2017-12-17] MEDS: AMMONIUM LACTATE 12% TOPICAL LOTION 226GM BOTTLE. TP ×2 (09:16→21:05)
[2017-12-17] MEDS: ROFLUMILAST 500 MCG TABLET. PO (09:17)
[2017-12-17] MEDS: DULoxetine HCL 30 MG CAPSULE.DR PO (09:17)
[2017-12-17] MEDS: FLUTICASONE 50MCG/NASAL SPRAY 16GM BOTTLE. NS (09:17)
[2017-12-17] MEDS: LACTOBACILLUS RHAMNOSUS GG 1 CAPSULE. PO ×2 (09:18→21:04)
[2017-12-17] MEDS: GABAPENTIN 300 MG CAPSULE. PO ×4 (09:18→21:04)
[2017-12-17] MEDS: QUEtiapine 25 MG TABLET. PO ×2 (09:18→21:03)
[2017-12-17] MEDS: CETIRIZINE HCL 10 MG TABLET. PO (09:18)
[2017-12-17] MEDS: OXYBUTYNIN CHLORIDE 5 MG TABLET PO ×3 (09:18→21:04)
[2017-12-17] MEDS: tiZANidine 4 MG TABLET. PO ×3 (09:18→21:04)
[2017-12-17] MEDS: busPIRone 5 MG TABLET. PO ×2 (09:18→21:04)
[2017-12-17] MEDS: HYDROCORTISONE 1% TOPICAL OINTMENT 30GM TUBE. TP ×2 (09:19→21:05)
[2017-12-17] MEDS: METOPROLOL SUCC 24HR ER 50 MG TAB.ER.24H. PO (09:19)
[2017-12-17] MEDS: HYDROCORTISONE 1% TOPICAL CREAM 30GM TUBE. TP ×3 (09:20→21:00)
[2017-12-17] MEDS: METHYL SALICYLATE/MENTHOL TOPICAL OINTMENT 29GM TUBE. TP ×3 (12:14→21:04)
[2017-12-17] MEDS: AMINO AC 3%/ELECTROLYTE/GLYCER 1,000 ML IV ×2 (17:59→22:15)
[2017-12-17] MEDS: traZODone 100 MG TABLET. PO (21:03)
[2017-12-17] MEDS: QUEtiapine 100 MG TABLET. PO (21:04)
[2017-12-17] MEDS: ATORVASTATIN CALCIUM 10 MG TABLET. PO (21:04)
[2017-12-18] MEDS: HYDROcodone/APAP 7.5/325MG 1 TAB TABLET PO ×3 (01:19→14:38)
[2017-12-18] MEDS: PANTOPRAZOLE 40 MG TABLET.DR. PO (06:07)
[2017-12-18] MEDS: PIPERACILLIN/TAZOBACTAM 2.25 GM in IV NORMAL SALINE 50ML 50 ML IV ×3 (06:07→12:18)
[2017-12-18 06:38] LABS: ANION GAP 10 (6-14); BLOOD UREA NITROGEN 27 mg/dL (7-20); CALCIUM 9.3 mg/dL (8.5-10.1); CARBON DIOXIDE 26 mmol/L (21-32); CHLORIDE 100 mmol/L (98-107); CREATININE 1.8 mg/dL (0.6-1.0); GFR 28.3; GLUCOSE 106 mg/dL (70-99); POTASSIUM 4.4 mmol/L (3.5-5.1); SODIUM 136 mmol/L (136-145)
[2017-12-18] MEDS: LORazepam 1 MG TABLET PO ×2 (07:34→14:00)
[2017-12-18] MEDS: BUDESONIDE 0.5 MG/2 ML NEBU. NEB (07:45)
[2017-12-18] MEDS: IPRATRPIUM/ALBUTEROL 0.5/2.5MG 3 ML NEBU. NEB ×3 (07:46→15:33)
[2017-12-18] MEDS: QUEtiapine 25 MG TABLET. PO (08:40)
[2017-12-18] MEDS: DULoxetine HCL 30 MG CAPSULE.DR PO (08:40)
[2017-12-18] MEDS: GABAPENTIN 300 MG CAPSULE. PO ×2 (08:40→14:00)
[2017-12-18] MEDS: AMINO AC 3%/ELECTROLYTE/GLYCER 1,000 ML IV (08:40)
[2017-12-18] MEDS: tiZANidine 4 MG TABLET. PO ×2 (08:40→14:37)
[2017-12-18] MEDS: LACTOBACILLUS RHAMNOSUS GG 1 CAPSULE. PO (08:41)
[2017-12-18] MEDS: busPIRone 5 MG TABLET. PO (08:41)
[2017-12-18] MEDS: ROFLUMILAST 500 MCG TABLET. PO (08:41)
[2017-12-18] MEDS: CETIRIZINE HCL 10 MG TABLET. PO (08:41)
[2017-12-18] MEDS: OXYBUTYNIN CHLORIDE 5 MG TABLET PO ×2 (08:41→14:37)
[2017-12-18] MEDS: METOPROLOL SUCC 24HR ER 50 MG TAB.ER.24H. PO (08:43)
[2017-12-18] MEDS: AMMONIUM LACTATE 12% TOPICAL LOTION 226GM BOTTLE. TP (08:46)
[2017-12-18] MEDS: NYSTATIN TOPICAL POWDER 15GM BOTTLE. TP (08:46)
[2017-12-18] MEDS: HYDROCORTISONE 1% TOPICAL CREAM 30GM TUBE. TP ×2 (08:47→14:00)
[2017-12-18] MEDS: FLUTICASONE 50MCG/NASAL SPRAY 16GM BOTTLE. NS (08:47)
[2017-12-18] MEDS: POTASSIUM CL 20MEQ IN D5W 1,000 ML IV (12:19)
[2018-01-13] MEDS ORDERED: PALIPERIDONE PALMITATE 156 MG IM (09:00)
== END 2017-12-18 14:50 | DRG 853 ==
LOC: 4 NORTH 22:10
PROC: 0JBR0ZZ Excision of Left Foot Subcutaneous Tissue and Fascia, Open Approach (ICD-10-PCS; principal; 2017-12-07 07:19)
PROC: 02H633Z Insertion of Infusion Device into Right Atrium, Percutaneous Approach (ICD-10-PCS; 2017-12-07 07:19)
DX: A41.9 Sepsis, unspecified organism (principal); E43 Unspecified severe protein-calorie malnutrition; N17.0 Acute kidney failure with tubular necrosis; E87.0 Hyperosmolality and hypernatremia; K51.90 Ulcerative colitis, unspecified, without complications; T87.44 Infection of amputation stump, left lower extremity; F20.9 Schizophrenia, unspecified; E87.5 Hyperkalemia; G20 Parkinson's disease; K56.7 Ileus, unspecified; Z68.41 Body mass index [BMI] 40.0-44.9, adult; J98.11 Atelectasis; L03.116 Cellulitis of left lower limb; M86.9 Osteomyelitis, unspecified; N12 Tubulo-interstitial nephritis, not specified as acute or chronic; F03.90 Unspecified dementia, unspecified severity, without behavioral disturbance, psychotic disturbance, mood disturbance, and anxiety; E86.0 Dehydration; D64.9 Anemia, unspecified; E78.5 Hyperlipidemia, unspecified; F32.9 Major depressive disorder, single episode, unspecified; F41.9 Anxiety disorder, unspecified; I12.9 Hypertensive chronic kidney disease with stage 1 through stage 4 chronic kidney disease, or unspecified chronic kidney disease; J44.9 Chronic obstructive pulmonary disease, unspecified; K82.8 Other specified diseases of gallbladder; K86.89 Other specified diseases of pancreas; M06.9 Rheumatoid arthritis, unspecified; M19.90 Unspecified osteoarthritis, unspecified site; T36.8X5A Adverse effect of other systemic antibiotics, initial encounter; X78.9XXA Intentional self-harm by unspecified sharp object, initial encounter; N18.9 Chronic kidney disease, unspecified; Z51.5 Encounter for palliative care; R32 Unspecified urinary incontinence; Y92.238 Other place in hospital as the place of occurrence of the external cause; Z66 Do not resuscitate; Y83.5 Amputation of limb(s) as the cause of abnormal reaction of the patient, or of later complication, without mention of misadventure at the time of the procedure; Z98.42 Cataract extraction status, left eye; Z98.41 Cataract extraction status, right eye; Z93.2 Ileostomy status; Z90.49 Acquired absence of other specified parts of digestive tract; Z87.891 Personal history of nicotine dependence; Y92.89 Other specified places as the place of occurrence of the external cause; Z88.5 Allergy status to narcotic agent; Y93.89 Activity, other specified; Y99.8 Other external cause status
CPT/HCPCS: 36415; 36569; 71045; 73718; 74176; 74250; 80048; 80051; 80053; 80202; 81001; 82962; 83605; 83735; 85025; 85027; 87040; 87071; 87075; 87086; 87205; 87641; 93005; 94640; 94760; 97110-GP; 97162-GP; 97166-GO; 97530-GO; 97530-GP; J0610; J1100; J1630; J1815; J2060; J2270; J2370; J2405; J2543; J2704; J2997; J3010; J3370; J3480; J7030; J7042; J7120; J7620; J7626; Q9966; Q9967